=== PATIENT | female | born 1950 | race Caucasian/White ===

== ENCOUNTER → 2024-05-01 12:32 | Outpatient (CLI) | payer OTHER, SELFPAY | LOC: RESP 12:33 | PROVIDERS: PCP Nurse Practitioner Family; Referring Provider Internal Medicine; Visit Provider Internal Medicine | DX: J96.11 Chronic respiratory failure with hypoxia (principal); J98.8 Other specified respiratory disorders; R94.2 Abnormal results of pulmonary function studies | CPT/HCPCS: 94010; 94618; 94726; 94729 ==